=== PATIENT | male | born 1990 | race Caucasian/White ===

== ENCOUNTER 2017-09-15 18:37 | Emergency (ER) | payer MEDICAID ==
--- NOTE | 2017-09-15 20:19 | EDM.PDOC ---
ED HPI GENERAL MEDICAL PROBLEM - General Chief Complaint: ENT Problem Stated Complaint: TOOTH INFECTED Time Seen by Provider: 09/15/17 20:03 Source of Information: Reports: Patient History Limitations: Reports: No Limitations - History of Present Illness INITIAL COMMENTS - FREE TEXT/NARRATIVE: This is a 27-year-old male. He's been having a toothache since yesterday morning. He states that he thinks he has an abscess of this to left lower canine tooth. He's been having increasing pain but not running a fever or chills. He is an insulin-dependent diabetic has been drinking juices and sugar tablets to keep his blood sugars up. He denies any other acute symptoms at this time. Left Lower Tooth/Teeth Pain Score (Numeric/FACES): 7 - Related Data Allergies Allergy/AdvReac Type Severity Reaction Status Date / Time No Known Allergies Allergy Verified 09/15/17 18:59 Home Meds: Home Meds Insulin Aspart [NovoLOG] 0 units INJECT ASDIRECTED 09/15/17 [History] Insulin Detemir [Levemir] 25 units INJECT DAILY 09/15/17 [History] Past Medical History Endocrine/Metabolic History: Reports: Diabetes, Type I Social & Family History - Tobacco Use Smoking Status *Q: Never Smoker - Caffeine Use Caffeine Use: Reports: Soda - Recreational Drug Use Drug Use in Last 12 Months: Yes Other Recreational Drug Type: last used 6 months ago-marijuana; has a card ED ROS ENT - Review of Systems Review Of Systems: See Below Constitutional: Denies: Fever, Chills HEENT: Reports: Other (As per history of present illness) Respiratory: Reports: No Symptoms Cardiovascular: Reports: No Symptoms Endocrine: Reports: No Symptoms GI/Abdominal: Reports: No Symptoms : Reports: No Symptoms Musculoskeletal: Reports: No Symptoms Skin: Reports: No Symptoms Neurological: Reports: No Symptoms Psychiatric: Reports: No Symptoms Hematologic/Lymphatic: Reports: No Symptoms ED EXAM, ENT - Physical Exam Exam: See Below Exam Limited By: No Limitations General Appearance: Alert, WD/WN, No Apparent Distress Eye Exam: Bilateral Eye: Normal Inspection Ears: Normal External Exam, Normal Canal, Normal TMs Nose: Normal Inspection Mouth/Throat: Normal Inspection, Other (His left lower canine tooth does appear to have some swelling around it and maybe a slight head suggesting a early abscess, obviously tender to touch, there is no soft tissue swelling of the cheek noted) Head: Normocephalic Neck: Normal Inspection, Supple Respiratory/Chest: No Respiratory Distress Back: Full Range of Motion Extremities: Normal Inspection, Normal Range of Motion Neurological: Alert, Oriented Psychiatric: Normal Affect, Normal Mood Skin: Warm, Dry Course - Vital Signs Last Recorded V/S: Last Vital Signs Temp 96.9 F 09/15/17 18:55 Pulse 136 H 09/15/17 18:55 Resp 20 09/15/17 18:55 BP 112/83 09/15/17 18:55 Pulse Ox 98 09/15/17 18:55 - Re-Assessments/Exams Free Text/Narrative Re-Assessment/Exam: 09/15/17 21:04 The patient states his friend has credit cards they want to get the medicines out of the [facility]. Departure - Departure Time of Disposition: 21:05 Disposition: Home, Self-Care 01 Condition: Good Clinical Impression: Dental infection, Dental abscess - Discharge Information Referrals: PCP,None [Primary Care Provider] - Forms: ED Department Discharge Additional Instructions: Get your medications from the [facility] in the ER lobby, take the antibiotics faithfully until they're finished, take the pain medications as needed, realize you might get some drainage from that tooth over the next couple of days, follow -up with a dentist this week for repair or extraction of the tooth
== END 2017-09-15 21:22 | disposition home or self-care (01) ==
LOC: JD.ED 18:37
DX: K04.7 Periapical abscess without sinus (principal); E10.9 Type 1 diabetes mellitus without complications; Z79.4 Long term (current) use of insulin
CPT/HCPCS: 99282; 99283

== ENCOUNTER 2017-10-06 01:29 | Emergency (ER) | payer SELFPAY ==
[2017-10-06] MEDS ORDERED: Ondansetron 4 MG/2 ML SDV IVPUSH ONE (01:53)
[2017-10-06] MEDS ORDERED: Sodium Chloride 0.9% 10 ML Syringe FLUSH PRN (01:53)
[2017-10-06] MEDS ORDERED: fentaNYL 100 MCG/2 ML SDV IVPUSH ONE ×3 (01:55→05:41)
[2017-10-06] MEDS ORDERED: Sodium Chloride 0.9% 2,000 ML IV SCH (02:00)
--- NOTE | 2017-10-06 03:36 | EDM.PDOC ---
ED HPI GENERAL MEDICAL PROBLEM - General Chief Complaint: Abdominal Pain Stated Complaint: ABDOMINAL PAIN Time Seen by Provider: 10/06/17 01:52 Source of Information: Reports: Patient, Other (friend) History Limitations: Reports: No Limitations - History of Present Illness INITIAL COMMENTS - FREE TEXT/NARRATIVE: The patient presents with abdominal pain, nausea and back pain. This all started this morning. He is not very cooperative on arrival. He keeps saying his kidneys hurt and that he is thirsty. He is moving on the cot. He would not let my nurse do a glucose stick at first. He is an insulin dependent diabetic who was diagnosed 10 years ago and has only been in DKA when diagnosed. He denies fever, chills, cough, or chest pain. He does have shortness of breath and he is breathing fast and hard. He could not tell my what his last blood sugar was. His friend thought he did take his insulin today. Onset: Gradual Duration: Hour(s): Location: Reports: Abdomen, Back Quality: Reports: Sharp Severity: Severe Improves with: Reports: None Worsens with: Reports: None Associated Symptoms: Reports: Nausea/Vomiting, Shortness of Breath. Denies: Chest Pain, Cough, Fever/Chills, Headaches Abdominal Pain Score (Numeric/FACES): 10 - Related Data Allergies Allergy/AdvReac Type Severity Reaction Status Date / Time No Known Allergies Allergy Verified 10/06/17 01:39 Home Meds: Home Meds Insulin Aspart [NovoLOG] 0 units INJECT ASDIRECTED 09/15/17 [History] Insulin Detemir [Levemir] 25 units INJECT DAILY 09/15/17 [History] Past Medical History Cardiovascular History: Reports: Other (See Below) Other Cardiovascular History: high potassium Gastrointestinal History: Reports: Pancreatitis Endocrine/Metabolic History: Reports: Diabetes, Type I Social & Family History - Tobacco Use Smoking Status *Q: Current Every Day Smoker Years of Tobacco use: 10 Packs/Tins Daily: 0.5 - Caffeine Use Caffeine Use: Reports: Soda - Recreational Drug Use Drug Use in Last 12 Months: Yes Other Recreational Drug Type: last used 6 months ago-marijuana; has a card ED ROS GENERAL - Review of Systems Review Of Systems: See Below Constitutional: Reports: No Symptoms HEENT: Reports: No Symptoms Respiratory: Reports: Shortness of Breath Cardiovascular: Reports: No Symptoms Endocrine: Reports: Fatigue, High Glucose GI/Abdominal: Reports: Abdominal Pain, Nausea, Vomiting. Denies: Diarrhea : Reports: No Symptoms Musculoskeletal: Reports: Back Pain Skin: Reports: No Symptoms Neurological: Reports: Confusion ED EXAM, GI/ABD - Physical Exam Exam: See Below Exam Limited By: No Limitations General Appearance: Alert, No Apparent Distress Ears: Normal TMs Nose: Normal Inspection Throat/Mouth: Other (Dry mucus membranes) Head: Atraumatic, Normocephalic Neck: Normal Inspection Respiratory/Chest: No Respiratory Distress, Lungs Clear, Normal Breath Sounds, Other (He is breathing hard and fast) Cardiovascular: No Edema, No Murmur, Tachycardia GI/Abdominal Exam: Soft, Non-Tender, No Organomegaly, No Mass Back Exam: Normal Inspection Extremities: Normal Inspection Course - Vital Signs Last Recorded V/S: Last Vital Signs Temp 98.3 F 10/06/17 01:40 Pulse 111 H 10/06/17 01:40 Resp 18 10/06/17 01:40 BP 117/76 10/06/17 01:40 Pulse Ox 100 10/06/17 01:40 - Orders/Labs/Meds Orders: Active Orders 24 hr Category Date Time Status Cardiac Monitoring [RC] . DIRECTED Care 10/06/17 01:53 Active Peripheral IV Care [RC] . DIRECTED Care 10/06/17 01:53 Active BASIC METABOLIC PANEL,BMP [CHEM] Stat Lab 10/06/17 05:21 Ordered DRUG SCREEN, URINE [URCHEM] Stat Lab 10/06/17 02:55 Ordered UA W/MICROSCOPIC [URIN] Stat Lab 10/06/17 02:55 Ordered Insulin Regular, Human [HumuLIN R] 100 unit Med 10/06/17 04:00 Active Sodium Chloride 0.9% [Normal Saline] 99 ml IV TITRATE Lactated Ringers [Ringers, Lactated] 1,000 ml Med 10/06/17 05:06 Active IV .BOLUS Sodium Chloride 0.9% [Normal Saline] 2,000 ml Med 10/06/17 02:00 Active IV .BOLUS Sodium Chloride 0.9% [Saline Flush] Med 10/06/17 01:53 Active 10 ml FLUSH ASDIRECTED PRN ED Antiemetic Medication Reflex [OM.PC] Stat Oth 10/06/17 01:53 Ordered Peripheral IV Insertion Adult [OM.PC] Stat Oth 10/06/17 01:53 Ordered Medication Orders Sodium Chloride (Normal Saline) 2,000 mls @ 1,000 mls/hr IV .BOLUS JOSE Last Admin: 10/06/17 02:13 Dose: 1,000 mls/hr Insulin Human Regular 100 unit (/ Sodium Chloride) 100 mls @ 6 mls/hr IV TITRATE JOSE; Protocol Last Admin: 10/06/17 04:03 Dose: 6 unit/hr, 6 mls/hr Lactated Ringer's (Ringers, Lactated) 1,000 mls @ 1,000 mls/hr IV .BOLUS ONE Stop: 10/06/17 06:05 Last Admin: 10/06/17 05:16 Dose: 1,000 mls/hr Sodium Chloride (Saline Flush) 10 ml FLUSH ASDIRECTED PRN PRN Reason: Keep Vein Open Last Admin: 10/06/17 02:13 Dose: 10 ml Labs: Laboratory Tests 10/06/17 10/06/17 10/06/17 Range/Units 02:00 02:00 02:00 WBC 17.66 H (4.23-9.07) K/mm3 RBC 5.81 (4.63-6.08) M/mm3 Hgb 17.2 (13.7-17.5) gm/L Hct 50.5 (40.1-51.0) % MCV 86.9 (79.0-92.2) fl MCH 29.6 (25.7-32.2) pg MCHC 34.1 (32.2-35.5) g/dl RDW Std Deviation 37.6 (35.1-43.9) fL Plt Count 455 H (163-337) K/mm3 MPV 9.4 (9.4-12.3) fl Neut % (Auto) 76.3 H (34.0-67.9) % Lymph % (Auto) 14.6 L (21.8-53.1) % [place] % (Auto) 6.3 (5.3-12.2) % Eos % (Auto) 0.1 L (0.8-7.0) Baso % (Auto) 0.3 (0.1-1.2) % Neut # (Auto) 13.48 H (1.78-5.38) K/mm3 Lymph # (Auto) 2.58 (1.32-3.57) K/mm3 [place] # (Auto) 1.11 H (0.30-0.82) K/mm3 Eos # (Auto) 0.01 L (0.04-0.54) K/mm3 Baso # (Auto) 0.05 (0.01-0.08) K/mm3 Manual Slide Review Abnormal smear Puncture Site ABG pH (7.35-7.45) ABG pCO2 (35.0-45.0) mmHg ABG pO2 (80.0-100.0) mmHg ABG HCO3 (22.0-26.0) meq/L ABG O2 Saturation (96.0-97.0) % ABG Base Excess (-2-2.0) A-a Gradient mmHg O2 Delivery Device FiO2 (21.00-100.00) % Sodium 129 L (136-145) mEq/L Potassium 6.0 H (3.5-5.1) mEq/L Chloride 93 L (98-107) mEq/L Carbon Dioxide 9 L (21-32) mEq/L Anion Gap 33.0 H (5-15) BUN 20 H (7-18) mg/dL Creatinine 1.7 H (0.7-1.3) mg/dL Est Cr Clr Drug Dosing 66.41 mL/min Estimated GFR (MDRD) 48 (>60) mL/min BUN/Creatinine Ratio 11.8 L (14-18) Glucose 619 H* (74-106) mg/dL Serum Osmolality 326 H (280-300) mosm/kg Calcium 9.5 (8.5-10.1) mg/dL Total Bilirubin 0.8 (0.2-1.0) mg/dL AST 16 (15-37) U/L ALT 33 (16-63) U/L Alkaline Phosphatase 167 H (46-116) U/L Total Protein 8.1 (6.4-8.2) g/dl Albumin 3.9 (3.4-5.0) g/dl Globulin 4.2 gm/dL Albumin/Globulin Ratio 0.9 L (1-2) Lipase 401 H (73-393) U/L Urine Color (Yellow) Urine Appearance (Clear) Urine pH (5.0-8.0) Ur Specific [place] (1.005-1.030) Urine Protein (Negative) Urine Glucose (UA) (Negative) Urine Ketones (Negative) Urine Occult Blood (Negative) Urine Nitrite (Negative) Urine Bilirubin (Negative) Urine Urobilinogen (0.2-1.0) Ur Leukocyte Esterase (Negative) Urine RBC (0-5) /hpf Urine WBC (0-5) /hpf Ur Epithelial Cells (0-5) /hpf Urine Bacteria (FEW) /hpf Urine Mucus (FEW) /hpf Urine Opiates Screen (NEGATIVE) Ur Buprenorphine Scrn (NEGATIVE) Ur Oxycodone Screen (NEGATIVE) Urine Methadone Screen (NEGATIVE) Ur Propoxyphene Screen (NEGATIVE) Ur Barbiturates Screen (NEGATIVE) Ur Tricyclics Screen (NEGATIVE) Ur Phencyclidine Scrn (NEGATIVE) Ur Amphetamine Screen (NEGATIVE) U Methamphetamines Scrn (NEGATIVE) U Benzodiazepines Scrn (NEGATIVE) U Cocaine Metab Screen (NEGATIVE) U Marijuana (THC) Screen (NEGATIVE) Ethyl Alcohol 0.00 (0.00) gm% Ketones 12.72 (0.0-0.3) mM 10/06/17 10/06/17 10/06/17 Range/Units 02:10 02:55 02:55 WBC (4.23-9.07) K/mm3 RBC (4.63-6.08) M/mm3 Hgb (13.7-17.5) gm/L Hct (40.1-51.0) % MCV (79.0-92.2) fl MCH (25.7-32.2) pg MCHC (32.2-35.5) g/dl RDW Std Deviation (35.1-43.9) fL Plt Count (163-337) K/mm3 MPV (9.4-12.3) fl Neut % (Auto) (34.0-67.9) % Lymph % (Auto) (21.8-53.1) % [place] % (Auto) (5.3-12.2) % Eos % (Auto) (0.8-7.0) Baso % (Auto) (0.1-1.2) % Neut # (Auto) (1.78-5.38) K/mm3 Lymph # (Auto) (1.32-3.57) K/mm3 [place] # (Auto) (0.30-0.82) K/mm3 Eos # (Auto) (0.04-0.54) K/mm3 Baso # (Auto) (0.01-0.08) K/mm3 Manual Slide Review Puncture Site Lt brachial ABG pH 7.01 L* (7.35-7.45) ABG pCO2 11.2 L* (35.0-45.0) mmHg ABG pO2 119.0 H (80.0-100.0) mmHg ABG HCO3 2.7 L (22.0-26.0) meq/L ABG O2 Saturation 97.6 H (96.0-97.0) % ABG Base Excess -30.4 L (-2-2.0) A-a Gradient 1 mmHg O2 Delivery Device Room air FiO2 21.00 (21.00-100.00) % Sodium (136-145) mEq/L Potassium (3.5-5.1) mEq/L Chloride (98-107) mEq/L Carbon Dioxide (21-32) mEq/L Anion Gap (5-15) BUN (7-18) mg/dL Creatinine (0.7-1.3) mg/dL Est Cr Clr Drug Dosing mL/min Estimated GFR (MDRD) (>60) mL/min BUN/Creatinine Ratio (14-18) Glucose (74-106) mg/dL Serum Osmolality (280-300) mosm/kg Calcium (8.5-10.1) mg/dL Total Bilirubin (0.2-1.0) mg/dL AST (15-37) U/L ALT (16-63) U/L Alkaline Phosphatase (46-116) U/L Total Protein (6.4-8.2) g/dl Albumin (3.4-5.0) g/dl Globulin gm/dL Albumin/Globulin Ratio (1-2) Lipase (73-393) U/L Urine Color Yellow (Yellow) Urine Appearance Clear (Clear) Urine pH 5.5 (5.0-8.0) Ur Specific [place] 1.025 (1.005-1.030) Urine Protein 2+ H (Negative) Urine Glucose (UA) 2+ H (Negative) Urine Ketones 3+ H (Negative) Urine Occult Blood Trace-lysed H (Negative) Urine Nitrite Negative (Negative) Urine Bilirubin Negative (Negative) Urine Urobilinogen 0.2 (0.2-1.0) Ur Leukocyte Esterase Negative (Negative) Urine RBC 0-5 (0-5) /hpf Urine WBC Not seen (0-5) /hpf Ur Epithelial Cells Not seen (0-5) /hpf Urine Bacteria Not seen (FEW) /hpf Urine Mucus Not seen (FEW) /hpf Urine Opiates Screen Negative (NEGATIVE) Ur Buprenorphine Scrn Negative (NEGATIVE) Ur Oxycodone Screen Negative (NEGATIVE) Urine Methadone Screen Negative (NEGATIVE) Ur Propoxyphene Screen Negative (NEGATIVE) Ur Barbiturates Screen Negative (NEGATIVE) Ur Tricyclics Screen Negative (NEGATIVE) Ur Phencyclidine Scrn Negative (NEGATIVE) Ur Amphetamine Screen Negative (NEGATIVE) U Methamphetamines Scrn Presumptive positive H (NEGATIVE) U Benzodiazepines Scrn Negative (NEGATIVE) U Cocaine Metab Screen Negative (NEGATIVE) U Marijuana (THC) Screen Negative (NEGATIVE) Ethyl Alcohol (0.00) gm% Ketones (0.0-0.3) mM Meds: Medications Generic Name Dose Route Start Last Admin Trade Name Freq PRN Reason Stop Dose Admin Sodium Chloride 2,000 mls @ 1,000 mls/hr 10/06/17 02:00 10/06/17 02:13 Normal Saline IV 1,000 mls/hr .BOLUS JOSE Administration Insulin Human Regular 100 unit 100 mls @ 6 mls/hr 10/06/17 04:00 10/06/17 04: 03 / Sodium Chloride IV 6 unit/hr TITRATE JOSE 6 mls/hr Administration Protocol 6 UNIT/HR Lactated Ringer's 1,000 mls @ 1,000 mls/hr 10/06/17 05:06 10/06/17 05:16 Ringers, Lactated IV 10/06/17 06:05 1,000 mls/hr .BOLUS ONE Administration Sodium Chloride 10 ml 10/06/17 01:53 10/06/17 02:13 Saline Flush FLUSH 10 ml ASDIRECTED PRN Administration Keep Vein Open Discontinued Medications Generic Name Dose Route Start Last Admin Trade Name Freq PRN Reason Stop Dose Admin Fentanyl 100 mcg 10/06/17 01:55 10/06/17 02:06 Sublimaze IVPUSH 10/06/17 01:56 100 mcg ONETIME ONE Administration Fentanyl 50 mcg 10/06/17 04:01 10/06/17 04:04 Sublimaze IVPUSH 10/06/17 04:02 50 mcg ONETIME ONE Administration Ondansetron HCl 4 mg 10/06/17 01:53 10/06/17 02:09 Zofran IVPUSH 10/06/17 01:54 4 mg ONETIME ONE Administration - Re-Assessments/Exams Free Text/Narrative Re-Assessment/Exam: 10/06/17 03:32 I suspect he is in DKA. I ordered an IV NS 2L bolus, labs, fentanyl 100mcg IV and zofran 4mg IV. His WBC is elevated at 17.66. His pH is low at 7.01. His pCO2 is low at 11.2. His pO2 is elevated at 119. His Na is low at 129. His K is elevated at 6. His anion gap is elevated at 33. His creatinine is elevated at 1.7. His glucose is elevated at 619. His serum osmolality is 326. His lipase is slightly elevated at 401. His UA shows protein, glucose and ketones. His urine drug screen was presumptive positive for meth. His ETOH is negative. His ketones are elevated at 12.72. He is in DKA. I will start an insulin drip after my 2nd liter of fluid goes in. 10/06/17 05:26 He is not confused now. I have ordered an insulin drip at 6 units/hr. We need an ICU bed for him but we do not have one available. I talked to my hospitalist and she could not take him due to staffing for ICU. I called [facility] in [place] and talked with Dr Ruiz and he agreed to the transfer. 10/06/17 05:33 Departure - Departure Time of Disposition: 05:40 Disposition: DC/Tfer to Acute Hospital 02 Condition: Serious Clinical Impression: Dehydration DKA (diabetic ketoacidoses) Qualifiers: Diabetes mellitus type: type 1 Diabetes mellitus complication detail: without coma Qualified Code(s): E10.10 - Type 1 diabetes mellitus with ketoacidosis without coma Vomiting Qualifiers: Vomiting type: unspecified Vomiting Intractability: non-intractable Nausea presence: with nausea Qualified Code(s): R11.2 - Nausea with vomiting, unspecified - Discharge Information Referrals: PCP,Not In Area [Primary Care Provider] - Forms: ED Department Discharge - My Orders Last 24 Hours: My Active Orders 10/06/17 01:53 Cardiac Monitoring [RC] . DIRECTED Peripheral IV Care [RC] . DIRECTED Sodium Chloride 0.9% [Saline Flush] 10 ml FLUSH ASDIRECTED PRN ED Antiemetic Medication Reflex [OM.PC] Stat Peripheral IV Insertion Adult [OM.PC] Stat 10/06/17 02:00 Sodium Chloride 0.9% [Normal Saline] 2,000 ml IV .BOLUS 10/06/17 02:55 DRUG SCREEN, URINE [URCHEM] Stat UA W/MICROSCOPIC [URIN] Stat 10/06/17 04:00 Insulin Regular, Human [HumuLIN R] 100 unit Sodium Chloride 0.9% [Normal Saline] 99 ml IV TITRATE 10/06/17 05:06 Lactated Ringers [Ringers, Lactated] 1,000 ml IV .BOLUS 10/06/17 05:21 BASIC METABOLIC PANEL,BMP [CHEM] Stat - Assessment/Plan Last 24 Hours: My Active Orders 10/06/17 01:53 Cardiac Monitoring [RC] . DIRECTED Peripheral IV Care [RC] . DIRECTED Sodium Chloride 0.9% [Saline Flush] 10 ml FLUSH ASDIRECTED PRN ED Antiemetic Medication Reflex [OM.PC] Stat Peripheral IV Insertion Adult [OM.PC] Stat 10/06/17 02:00 Sodium Chloride 0.9% [Normal Saline] 2,000 ml IV .BOLUS 10/06/17 02:55 DRUG SCREEN, URINE [URCHEM] Stat UA W/MICROSCOPIC [URIN] Stat 10/06/17 04:00 Insulin Regular, Human [HumuLIN R] 100 unit Sodium Chloride 0.9% [Normal Saline] 99 ml IV TITRATE 10/06/17 05:06 Lactated Ringers [Ringers, Lactated] 1,000 ml IV .BOLUS 10/06/17 05:21 BASIC METABOLIC PANEL,BMP [CHEM] Stat
[2017-10-06] MEDS ORDERED: Lactated Ringers 1,000 ML IV ONE (05:06)
--- NOTE | 2017-10-06 18:35 | CT ---
CT abdomen and pelvis Technique: Multiple axial sections were obtained from above the dome of the diaphragm inferiorly through the pubic symphysis. Intravenous and oral contrast was not utilized. Study has been performed as a ureteral stone protocol. Findings: Kidneys show no abnormal calcifications. No ureteral dilatation or ureteral stone is seen. Stomach dilated with fluid. Visualized lung bases show nothing acute. Liver and spleen show no focal abnormality. Adrenal glands show no nodule. Pancreas shows no discrete abnormality. Aorta shows no aneurysmal dilatation. No retroperitoneal adenopathy or mesenteric abnormalities are seen. Appendix is seen and is normal. No pelvic mass or adenopathy is seen. No free fluid or inflammatory change is seen. Bladder somewhat dilated from urine. Bone window settings were reviewed which appear within normal limits for the patient's age. Impression: 1. No renal calculi, ureteral dilatation or ureteral stone is seen. 2. Dilated stomach with fluid as well as mildly dilated urine filled bladder. 3. Nothing acute is otherwise seen on noncontrast CT study of the abdomen and pelvis. Diagnostic code #2 I agree with preliminary report issued by [facility] ([facility] preliminary report dictated on 10/07/79, 7:50 AM Central Time)
== END 2017-10-06 11:25 ==
LOC: JD.ED 01:29
DX: E86.0 Dehydration (principal); E10.10 Type 1 diabetes mellitus with ketoacidosis without coma; R11.2 Nausea with vomiting, unspecified; R10.9 Unspecified abdominal pain; R11.0 Nausea; M54.9 Dorsalgia, unspecified; F17.210 Nicotine dependence, cigarettes, uncomplicated
CPT/HCPCS: 36415; 36600; 74176; 80048; 80053; 80306; 81001; 82009; 82803; 82962; 83690; 83930; 85025; 96361; 96365; 96366; 96375; 96376; 99285; G0480; J1815; J2405; J3010; J7030; J7040; J7050; J7120

== ENCOUNTER 2017-11-23 23:30 | Emergency (ER) | payer MEDICAID ==
[2017-11-23] MEDS ORDERED: HYDROmorphone 0.5 MG/0.5 ML SYRINGE IVPUSH ONE (23:55)
[2017-11-23] MEDS ORDERED: Sodium Chloride 0.9% 1,000 ML IV ONE (23:55)
[2017-11-23] MEDS ORDERED: Ondansetron 4 MG/2 ML SDV IVPUSH ONE (23:55)
--- NOTE | 2017-11-24 00:24 | EDM.PDOC ---
ED HPI GENERAL MEDICAL PROBLEM - General Chief Complaint: Diabetic Complaint Stated Complaint: DIABATIC KETOACIDTOSIS Time Seen by Provider: 11/23/17 23:30 Source of Information: Reports: Patient History Limitations: Reports: No Limitations - History of Present Illness INITIAL COMMENTS - FREE TEXT/NARRATIVE: This is a 27-year-old male. He was in the hospital I [facility] in end of September early October due to diabetic ketoacidosis. He was placed on some new medication that he states doesn't seem to help him. He's noticed that his blood sugars have been relatively high in the 304 100s and he can get them down and sometimes but is been having a hard time over the last month. Since Sunday he's been basically in bed due to fatigue and just not feeling well. He's had some nausea and vomiting may be a couple of times this week he does get some lower abdominal stomach pain on the left side whenever he goes into DKA. His blood sugars this week he states it been out of control. He was not going to come to the ER but his friend brought him here. He has been very thirsty and drinking lots of fluids and urinating a lot. He states he has been eating but is been eating all the wrong foods. Abdomen Pain Score (Numeric/FACES): 9 - Related Data Allergies Allergy/AdvReac Type Severity Reaction Status Date / Time No Known Allergies Allergy Verified 10/06/17 01:39 Home Meds: Home Meds Insulin Aspart [NovoLOG] 0 units INJECT ASDIRECTED 09/15/17 [History] Insulin Glargine,Hum.Rec.Anlog [Basaglar Kwikpen U-100] 20 units SQ BID [History] Past Medical History Cardiovascular History: Reports: Other (See Below) Other Cardiovascular History: high potassium Gastrointestinal History: Reports: Pancreatitis Endocrine/Metabolic History: Reports: Diabetes, Type I Social & Family History - Family History Family Medical History: Noncontributory - Tobacco Use Smoking Status *Q: Never Smoker - Caffeine Use Caffeine Use: Reports: Soda - Recreational Drug Use Recreational Drug Use: Yes Recreational Drug Type: Reports: Marijuana/Hashish Recreational Drug Use Frequency: Not Used In Over 3 Months ED ROS GENERAL - Review of Systems Review Of Systems: See Below Constitutional: Reports: Malaise, Weakness, Fatigue. Denies: Fever, Chills HEENT: Reports: No Symptoms Respiratory: Denies: Shortness of Breath, Cough Cardiovascular: Denies: Chest Pain Endocrine: Reports: High Glucose GI/Abdominal: Reports: Abdominal Pain, Diarrhea, Nausea, Vomiting : Reports: Other (Increased urination) Musculoskeletal: Reports: No Symptoms Skin: Reports: No Symptoms Neurological: Reports: No Symptoms Psychiatric: Reports: No Symptoms Hematologic/Lymphatic: Reports: No Symptoms ED EXAM GENERAL NO PERIP PULSE - Physical Exam Exam: See Below Exam Limited By: No Limitations General Appearance: Alert, WD/WN, No Apparent Distress, Thin Eye Exam: Bilateral Eye: Normal Inspection Ears: Normal External Exam, Normal Canal, Normal TMs Nose: Normal Inspection Throat/Mouth: Normal Inspection, Normal Lips, Normal Oropharynx, No Airway Compromise, Other (Tacky mucous membranes) Head: Normocephalic Neck: Supple Respiratory/Chest: No Respiratory Distress, Lungs Clear, Normal Breath Sounds Cardiovascular: Regular Rate, Rhythm, No Edema, No Murmur GI/Abdominal: Soft, Tender, Other (Decreased bowel sounds noted, he is tender in the left lower quadrant on palpation with some mild guarding, the right lower quadrant is much less tender with no guarding) Back Exam: Normal Inspection Extremities: Normal Inspection, Normal Range of Motion Neurological: Alert, Oriented Psychiatric: Normal Affect, Normal Mood Skin Exam: Warm, Dry Course - Vital Signs Last Recorded V/S: Last Vital Signs Temp 97.8 F 11/23/17 23:37 Pulse 102 H 11/23/17 23:37 Resp 18 11/23/17 23:37 BP 123/82 11/23/17 23:37 Pulse Ox 97 11/23/17 23:37 - Orders/Labs/Meds Orders: Active Orders 24 hr Category Date Time Status KUB [Abdomen 1V Flat] [CR] Stat Exams 11/24/17 01:05 Taken Magnesium Citrate [Citrate of Magnesia] Med 11/24/17 05:08 Once 300 ml PO ONETIME ONE Labs: Laboratory Tests 11/23/17 11/23/17 11/23/17 Range/Units 23:40 23:49 23:49 WBC 5.68 (4.23-9.07) K/mm3 RBC 4.91 (4.63-6.08) M/mm3 Hgb 14.6 (13.7-17.5) gm/L Hct 42.4 (40.1-51.0) % MCV 86.4 (79.0-92.2) fl MCH 29.7 (25.7-32.2) pg MCHC 34.4 (32.2-35.5) g/dl RDW Std Deviation 37.6 (35.1-43.9) fL Plt Count 287 (163-337) K/mm3 MPV 9.0 L (9.4-12.3) fl Neut % (Auto) 55.1 (34.0-67.9) % Lymph % (Auto) 35.7 (21.8-53.1) % Waller % (Auto) 7.0 (5.3-12.2) % Eos % (Auto) 1.4 (0.8-7.0) Baso % (Auto) 0.4 (0.1-1.2) % Neut # (Auto) 3.13 (1.78-5.38) K/mm3 Lymph # (Auto) 2.03 (1.32-3.57) K/mm3 Waller # (Auto) 0.40 (0.30-0.82) K/mm3 Eos # (Auto) 0.08 (0.04-0.54) K/mm3 Baso # (Auto) 0.02 (0.01-0.08) K/mm3 Sodium 133 L (136-145) mEq/L Potassium 4.6 (3.5-5.1) mEq/L Chloride 97 L (98-107) mEq/L Carbon Dioxide 31 (21-32) mEq/L Anion Gap 9.6 (5-15) BUN 18 (7-18) mg/dL Creatinine 0.9 (0.7-1.3) mg/dL Est Cr Clr Drug Dosing 117.60 mL/min Estimated GFR (MDRD) > 60 (>60) mL/min BUN/Creatinine Ratio 20.0 H (14-18) Glucose 480 H (74-106) mg/dL POC Glucose (70-105) mg/dL Lactic Acid (0.4-2.0) mmol/L Calcium 8.7 (8.5-10.1) mg/dL Total Bilirubin 0.4 (0.2-1.0) mg/dL AST 18 (15-37) U/L ALT 37 (16-63) U/L Alkaline Phosphatase 110 (46-116) U/L Total Protein 5.8 L (6.4-8.2) g/dl Albumin 2.5 L (3.4-5.0) g/dl Globulin 3.3 gm/dL Albumin/Globulin Ratio 0.8 L (1-2) Lipase 242 (73-393) U/L Ketones (0.0-0.3) mM 11/23/17 11/23/17 11/24/17 Range/Units 23:49 23:49 02:59 WBC (4.23-9.07) K/mm3 RBC (4.63-6.08) M/mm3 Hgb (13.7-17.5) gm/L Hct (40.1-51.0) % MCV (79.0-92.2) fl MCH (25.7-32.2) pg MCHC (32.2-35.5) g/dl RDW Std Deviation (35.1-43.9) fL Plt Count (163-337) K/mm3 MPV (9.4-12.3) fl Neut % (Auto) (34.0-67.9) % Lymph % (Auto) (21.8-53.1) % Waller % (Auto) (5.3-12.2) % Eos % (Auto) (0.8-7.0) Baso % (Auto) (0.1-1.2) % Neut # (Auto) (1.78-5.38) K/mm3 Lymph # (Auto) (1.32-3.57) K/mm3 Waller # (Auto) (0.30-0.82) K/mm3 Eos # (Auto) (0.04-0.54) K/mm3 Baso # (Auto) (0.01-0.08) K/mm3 Sodium (136-145) mEq/L Potassium (3.5-5.1) mEq/L Chloride (98-107) mEq/L Carbon Dioxide (21-32) mEq/L Anion Gap (5-15) BUN (7-18) mg/dL Creatinine (0.7-1.3) mg/dL Est Cr Clr Drug Dosing mL/min Estimated GFR (MDRD) (>60) mL/min BUN/Creatinine Ratio (14-18) Glucose (74-106) mg/dL POC Glucose 348 H (70-105) mg/dL Lactic Acid 3.5 H (0.4-2.0) mmol/L Calcium (8.5-10.1) mg/dL Total Bilirubin (0.2-1.0) mg/dL AST (15-37) U/L ALT (16-63) U/L Alkaline Phosphatase (46-116) U/L Total Protein (6.4-8.2) g/dl Albumin (3.4-5.0) g/dl Globulin gm/dL Albumin/Globulin Ratio (1-2) Lipase (73-393) U/L Ketones 0.17 (0.0-0.3) mM 11/24/17 11/24/17 11/24/17 Range/Units 03:35 04:18 05:00 WBC (4.23-9.07) K/mm3 RBC (4.63-6.08) M/mm3 Hgb (13.7-17.5) gm/L Hct (40.1-51.0) % MCV (79.0-92.2) fl MCH (25.7-32.2) pg MCHC (32.2-35.5) g/dl RDW Std Deviation (35.1-43.9) fL Plt Count (163-337) K/mm3 MPV (9.4-12.3) fl Neut % (Auto) (34.0-67.9) % Lymph % (Auto) (21.8-53.1) % Waller % (Auto) (5.3-12.2) % Eos % (Auto) (0.8-7.0) Baso % (Auto) (0.1-1.2) % Neut # (Auto) (1.78-5.38) K/mm3 Lymph # (Auto) (1.32-3.57) K/mm3 Waller # (Auto) (0.30-0.82) K/mm3 Eos # (Auto) (0.04-0.54) K/mm3 Baso # (Auto) (0.01-0.08) K/mm3 Sodium (136-145) mEq/L Potassium (3.5-5.1) mEq/L Chloride (98-107) mEq/L Carbon Dioxide (21-32) mEq/L Anion Gap (5-15) BUN (7-18) mg/dL Creatinine (0.7-1.3) mg/dL Est Cr Clr Drug Dosing mL/min Estimated GFR (MDRD) (>60) mL/min BUN/Creatinine Ratio (14-18) Glucose (74-106) mg/dL POC Glucose 270 H 207 H 262 H (70-105) mg/dL Lactic Acid (0.4-2.0) mmol/L Calcium (8.5-10.1) mg/dL Total Bilirubin (0.2-1.0) mg/dL AST (15-37) U/L ALT (16-63) U/L Alkaline Phosphatase (46-116) U/L Total Protein (6.4-8.2) g/dl Albumin (3.4-5.0) g/dl Globulin gm/dL Albumin/Globulin Ratio (1-2) Lipase (73-393) U/L Ketones (0.0-0.3) mM Meds: Medications Discontinued Medications Generic Name Dose Route Start Last Admin Trade Name Freq PRN Reason Stop Dose Admin Hydromorphone HCl 0.5 mg 11/23/17 23:55 11/24/17 00:01 Dilaudid IVPUSH 11/23/17 23:56 0.5 mg ONETIME ONE Administration Hydromorphone HCl 0.5 mg 11/24/17 00:55 11/24/17 01:03 Dilaudid IVPUSH 11/24/17 00:56 0.5 mg ONETIME ONE Administration Sodium Chloride 1,000 mls @ 999 mls/hr 11/23/17 23:55 11/24/17 00:01 Normal Saline IV 11/24/17 00:55 999 mls/hr ONETIME ONE Administration Sodium Chloride 1,000 mls @ 999 mls/hr 11/24/17 01:06 11/24/17 01:11 Normal Saline IV 11/24/17 02:06 999 mls/hr ONETIME ONE Administration Sodium Chloride 1,000 mls @ 999 mls/hr 11/24/17 02:24 11/24/17 02:31 Normal Saline IV 11/24/17 03:24 999 mls/hr ONETIME ONE Administration Insulin Human Regular 10 unit 11/24/17 02:24 11/24/17 02:31 Humulin R IV 11/24/17 02:25 10 units ONETIME ONE Administration Ketorolac Tromethamine 30 mg 11/24/17 04:10 11/24/17 04:13 Toradol IVPUSH 11/24/17 04:11 30 mg ONETIME ONE Administration Ondansetron HCl 4 mg 11/23/17 23:55 11/24/17 00:01 Zofran IVPUSH 11/23/17 23:56 4 mg ONETIME ONE Administration - Re-Assessments/Exams Free Text/Narrative Re-Assessment/Exam: 11/24/17 05:05 This entire time that the patient has been here he has been doing fine. He does complain of abdominal pain and cramping on and off. His blood sugar was over 400 when he first arrived but after 2 L of fluids and 10 units of insulin and his blood sugar dropped to 207 and began to rise slightly. He does not appear to be in diabetic ketoacidosis at this time. I have spoken with the patient seriously about taking care of his diabetes and having adequate follow-up with his family physician to monitor this. Departure - Departure Time of Disposition: 05:06 Disposition: Home, Self-Care 01 Condition: Fair Clinical Impression: Insulin dependent diabetes mellitus, Elevated blood sugar, Abdominal cramps Constipation Qualifiers: Constipation type: unspecified constipation type Qualified Code(s): K59.00 - Constipation, unspecified - Discharge Information Referrals: PCP,Not In Area [Primary Care Provider] - Forms: ED Department Discharge Additional Instructions: Drank one half bottle of mag citrate when you get home, continue to drink lots of fluids, if in 12 hours to have not had a good bowel movement drink the other half bottle of mag citrate, monitor your blood sugars very carefully at least 3 times a day before meals, follow-up with your family doctor regarding her insulin needs and your blood sugar control, return to the ER if needed - My Orders Last 24 Hours: My Active Orders 11/24/17 01:05 KUB [Abdomen 1V Flat] [CR] Stat 11/24/17 05:08 Magnesium Citrate [Citrate of Magnesia] 300 ml PO ONETIME ONE - Assessment/Plan Last 24 Hours: My Active Orders 11/24/17 01:05 KUB [Abdomen 1V Flat] [CR] Stat 11/24/17 05:08 Magnesium Citrate [Citrate of Magnesia] 300 ml PO ONETIME ONE
[2017-11-24] MEDS ORDERED: HYDROmorphone 0.5 MG/0.5 ML SYRINGE IVPUSH ONE (00:55)
[2017-11-24] MEDS ORDERED: Sodium Chloride 0.9% 1,000 ML IV ONE ×2 (01:06→02:24)
[2017-11-24] MEDS ORDERED: Insulin Regular, Human 100 Units/ML 3 ML Vial IV ONE (02:24)
[2017-11-24] MEDS ORDERED: Ketorolac 30 MG/ML SDV IVPUSH ONE (04:10)
[2017-11-24] MEDS ORDERED: Magnesium Citrate Solution 296 ML Bottle PO ONE (05:08)
--- NOTE | 2017-11-26 08:31 | CR ---
Abdomen: Supine view of the abdomen was obtained. Comparison: No prior study. Calcifications within the pelvis are compatible with phleboliths. Minimal increased stool is noted within the colon. Bony structures are unremarkable. Impression: 1. Incidental findings. Diagnostic code #2
== END 2017-11-24 05:14 | disposition home or self-care (01) ==
LOC: JD.ED 23:30
DX: E10.9 Type 1 diabetes mellitus without complications (principal); K59.00 Constipation, unspecified
CPT/HCPCS: 36415; 74018; 80053; 82009; 82962; 83605; 83690; 85025; 96361; 96374; 96375; 96376; 99285; A9270; J1170; J1815; J1885; J2405; J7040